=== PATIENT | male | born 1985 | race Caucasian/White ===

== ENCOUNTER 2017-02-05 20:39 | Emergency (ER) | payer OTHER | END 2017-02-05 22:38 | disposition home or self-care (01) | LOC: FER 20:39 | DX: L72.9 Follicular cyst of the skin and subcutaneous tissue, unspecified (principal); L08.9 Local infection of the skin and subcutaneous tissue, unspecified; F17.210 Nicotine dependence, cigarettes, uncomplicated | CPT/HCPCS: 86403; 87070; 87077; 87186; 87205; 99283 ==